=== PATIENT | female | born 1930 | race African-American/Black ===

== ENCOUNTER 2018-11-12 08:29 | Emergency (ER) | payer MEDICARE, MEDICAID ==
[~2018-11-12] VITALS: Ht 165.1 cm; Wt 52.0 kg
[~2018-11-12 08:29] MED LIST: AMLO10TA80 PO; LOVA20TA2 PO; MELO-106 PO; OXYB15TA9 PO; XAR15 PO
[2018-11-12] MEDS ORDERED: IBUPROFEN 400MG TABLET PO ONE (09:15)
[2018-11-12] MEDS ORDERED: ACETAMINOPHEN 325MG TABLET PO ONE (09:30)
[2018-11-12 10:26] VITALS: BP 146/74
== END 2018-11-12 10:29 | disposition home or self-care (01) ==
LOC: ER 08:29
DX: S46.091A Other injury of muscle(s) and tendon(s) of the rotator cuff of right shoulder, initial encounter (principal); M19.011 Primary osteoarthritis, right shoulder; I10 Essential (primary) hypertension; X58.XXXA Exposure to other specified factors, initial encounter; Y93.89 Activity, other specified; Y92.89 Other specified places as the place of occurrence of the external cause
CPT/HCPCS: 73030; 99283

== ENCOUNTER 2019-06-07 13:45 | Emergency (ER) | payer MEDICARE, MEDICAID ==
[~2019-06-07] VITALS: Ht 152.4 cm; Wt 50.0 kg
[2019-06-07 16:33] LABS: HEMATOCRIT. 36.3 % (36.0-48.0); MEAN CORPUSCULAR HEMOGLOBIN 30.3 pg (28.0-32.0); MEAN CORPUSCULAR VOLUME 91.8 fL (81.0-99.0); PLATELET 156 x1000/uL (130-400); RED BLOOD CELL COUNT 3.95 mill/uL (4.2-5.4); RED CELL DISTRIBUTION WIDTH 14.9 % (11.6-14.6)
[2019-06-07 16:34] LABS: CHLORIDE 99 mEq/L (98-107)
[2019-06-07 16:38] LABS: PARTIAL THROMBOPLASTIN TIME 27.8 sec (23.4-31.0)
[2019-06-07 16:48] LABS: CLARITY URINE CLEAR (CLEAR); COLOR URINE YELLOW (YELLOW); KETONES URINE NEGATIVE (NEGATIVE); LEUKOCYTE ESTERASE URINE NEGATIVE (NEGATIVE); NITRITE URINE NEGATIVE (NEGATIVE); OCCULT BLOOD URINE NEGATIVE (NEGATIVE); PROTEIN URINE NEGATIVE (NEGATIVE); SPECIFIC GRAVITY URINE 1.005 (1.005-1.030); UROBILINOGEN URINE 0.2 E.U./dL (0.2-1.0)
[2019-06-07] MEDS: MAGNESIUM/ALUMINUM HYDROXIDE/SIMETHICONE 30ML UDC PO ONE (16:57)
[2019-06-07] MEDS: ONDANSETRON HCL 4MG/2ML INJ IV ONE (16:58)
[2019-06-07] MEDS: DICYCLOMINE 10 MG/5 ML ORAL SYR PO ONE (16:58)
[2019-06-07] MEDS: VISCOUS LIDOCAINE 2% 15 ML UDC PO ONE (16:58)
[2019-06-07 17:07] LABS: PLATELET ESTIMATE NORMAL
[2019-06-07] MEDS: FAMOTIDINE 20MG/2ML VIAL IV ONE (17:49)
[2019-06-07 17:55] VITALS: BP 114/61
== END 2019-06-07 18:46 | disposition home or self-care (01) ==
LOC: ER 13:45
DX: K21.9 Gastro-esophageal reflux disease without esophagitis (principal); R07.89 Other chest pain; R53.1 Weakness; E11.9 Type 2 diabetes mellitus without complications; E78.00 Pure hypercholesterolemia, unspecified; I10 Essential (primary) hypertension; I25.2 Old myocardial infarction; Z98.890 Other specified postprocedural states; Z79.899 Other long term (current) drug therapy; Z88.0 Allergy status to penicillin
CPT/HCPCS: 36415; 71045; 80053; 81003; 83880; 84484; 85025; 85610; 85730; 93005; 96374; 96375; 99284; J2405; J3490

== ENCOUNTER 2021-02-05 13:42 | Emergency (ER) | payer MEDICARE, MEDICAID ==
[~2021-02-05] VITALS: Ht 160 cm; Wt 54.0 kg
[2021-02-05] MEDS ORDERED: ONDANSETRON HCL 4MG/2ML INJ IV STA (15:28)
[2021-02-05] MEDS ORDERED: MORPHINE SULFATE 4 MG/ML CPJ (NOT FOR IM USE) IV STA (15:28)
[2021-02-05] MEDS ORDERED: SODIUM CHLORIDE 0.9% 1,000 ML IV ONE (15:30)
[2021-02-05 16:32] LABS: CHLORIDE 107 mEq/L (98-107)
[2021-02-05 16:56] LABS: HEMATOCRIT. 36.7 % (36.0-48.0); HEMOGLOBIN. 12.2 g/dL (12.0-16.0); MEAN CORPUSCULAR HEMOGLOBIN 30.3 pg (28.0-32.0); MEAN CORPUSCULAR VOLUME 91.4 fL (81.0-99.0); MEAN PLATELET VOLUME 10.5 fl (7.4-10.4); PLATELET 140 x1000/uL (130-400); RED BLOOD CELL COUNT 4.02 mill/uL (4.2-5.4); RED CELL DISTRIBUTION WIDTH 14.8 % (11.6-14.6)
[2021-02-05 17:59] LABS: CLARITY URINE CLEAR (CLEAR); COLOR URINE YELLOW (YELLOW); KETONES URINE NEGATIVE (NEGATIVE); LEUKOCYTE ESTERASE URINE NEGATIVE (NEGATIVE); NITRITE URINE NEGATIVE (NEGATIVE); OCCULT BLOOD URINE NEGATIVE (NEGATIVE); PH URINE 6.5 (4.5-8.0); PROTEIN URINE NEGATIVE (NEGATIVE); SPECIFIC GRAVITY URINE 1.005 (1.005-1.030); UROBILINOGEN URINE 0.2 E.U./dL (0.2-1.0)
[2021-02-05 18:03] LABS: PLATELET ESTIMATE NORMAL
[2021-02-05] MEDS ORDERED: ASPIRIN 325MG EC TABLET PO ONE (18:30)
[2021-02-06 04:35] VITALS: BP 139/83
== END 2021-02-06 05:10 | disposition short-term general hospital (02) ==
LOC: ER 13:42
DX: R10.13 Epigastric pain (principal); R07.2 Precordial pain; Z20.822 Contact with and (suspected) exposure to COVID-19; K57.90 Diverticulosis of intestine, part unspecified, without perforation or abscess without bleeding; I11.0 Hypertensive heart disease with heart failure; I50.9 Heart failure, unspecified; E11.9 Type 2 diabetes mellitus without complications; E78.00 Pure hypercholesterolemia, unspecified
CPT/HCPCS: 36415; 71045; 74176; 80053; 81003; 83690; 83880; 84484; 85025; 87086; 87426; 93005; 96361; 96374; 96375; 99284; J2270; J2405; J7030